=== PATIENT | female | born 1940 | race Caucasian/White ===

== ENCOUNTER 2021-09-18 12:32 | Outpatient (REF) | payer MEDICARE, SELFPAY ==
[2021-09-18 13:22] LABS: MANUAL DIFF FLAG NO
[2021-09-18 13:41] LABS: Basophils Percent Auto 0.5 % (0-2); Eosinophils Absolute Auto 0.1 X10*3/uL (0.0-0.4); Eosinophils Percent Auto 2.2 % (0-4); Hematocrit 41.6 % (37.0-47.0); Hemoglobin 13.4 g/dl (12.0-16.0); Imm Gran Abs Auto 0.02 X10*3/uL (0.00-0.03); Imm Gran Pct Auto 0.3 % (0.0-0.4); Lymphocytes Absolute Auto 1.4 X10*3/uL (1.2-4.9); Lymphocytes Percent Auto 22.6 % (20-40); Mean Corpuscular HGB Conc 32.2 g/dl (31.0-35.0); Mean Corpuscular Hemoglobin 31.5 pg (27.0-33.0); Mean Corpuscular Volume 97.9 fL (80.0-98.0); Mean Platelet Volume 12.3 fL (9.4-12.3); Monocytes Absolute Auto 0.7 X10*3/uL (0.1-1.2); Monocytes Percent Auto 10.3 % (2-11); Neutrophils Absolute Auto 4.1 x10*3/uL (2.0-8.3); Neutrophils Percent Auto 64.1 % (45-73); Platelet Count 207 X10*3/uL (160-400); Red Blood Count 4.25 X10*6/uL (4.20-5.50); Red Cell Distribution Width 11.9 % (11.0-16.0); White Blood Count 6.3 X10*3/uL (4.8-10.8)
[2021-09-18 13:52] LABS: Anion Gap 12 (12-20); Blood Urea Nitrogen 16 mg/dL (9-16); Carbon Dioxide 30 mmol/L (22-29); Chloride 103 mmol/L (96-108); Estimated Glomerular Filt Rate > 60; Sodium 141 mmol/L (135-145)
[2021-09-18 14:17] LABS: Free T4 (Free Thyroxine) 1.06 ng/dL (0.71-1.85)
== END 2021-09-18 12:33 | disposition home or self-care (01) ==
LOC: HO.10HDL 12:32
PROVIDERS: Visit Provider Family Medicine
DX: I10 Essential (primary) hypertension (principal); I49.3 Ventricular premature depolarization
CPT/HCPCS: 36415; 80051; 82565; 84439; 84520; 85025

== ENCOUNTER 2022-03-31 11:42 | Outpatient (REF) | payer MEDICARE, SELFPAY ==
[2022-03-31 13:41] LABS: Anion Gap 10 (12-20); Blood Urea Nitrogen 17 mg/dL (9-16); Carbon Dioxide 30 mmol/L (22-29); Chloride 105 mmol/L (96-108); Estimated Glomerular Filt Rate > 60; Potassium 4.5 mmol/L (3.3-5.1); Sodium 140 mmol/L (135-145)
== END 2022-03-31 11:43 | disposition home or self-care (01) ==
LOC: HO.10HDL 11:42
PROVIDERS: Visit Provider Family Medicine
DX: I10 Essential (primary) hypertension (principal)
CPT/HCPCS: 36415; 80051; 82565; 84520

== ENCOUNTER 2022-09-20 12:24 | Outpatient (REF) | payer MEDICARE, SELFPAY ==
[2022-09-20 14:06] LABS: Anion Gap 12 (12-20); Blood Urea Nitrogen 16 mg/dL (9-16); Carbon Dioxide 29 mmol/L (22-29); Chloride 105 mmol/L (96-108); Estimated Glomerular Filt Rate > 60; Potassium 4.3 mmol/L (3.3-5.1); Sodium 142 mmol/L (135-145)
[2022-09-21 07:33] LABS: Magnesium 2.1 mg/dL (1.6-2.6)
== END 2022-09-20 12:25 | disposition home or self-care (01) ==
LOC: HO.10HDL 12:24
PROVIDERS: Visit Provider Family Medicine
DX: I10 Essential (primary) hypertension (principal)
CPT/HCPCS: 36415; 80051; 82565; 83735; 84520

== ENCOUNTER 2022-10-18 13:32 | Outpatient (REF) | payer MEDICARE, SELFPAY ==
--- NOTE | ~2022-10-18 | XR_ITS ---
EXAMINATION: XR SHOULDER, RIGHT CLINICAL INFORMATION: Right shoulder pain. COMPARISON: None TECHNIQUE: AP external rotation, Grashey, scapular Y, and axillary views of the right shoulder. FINDINGS: The bones and soft tissues are normal. No fracture. Glenohumeral and acromioclavicular alignment is anatomic with mild reduced joint space. No abnormal soft tissue calcifications. XR/XR shoulder RT min 2V IMPRESSION: Mild degenerative changes right shoulder joint. No visible acute fracture or dislocation seen.
== END 2022-10-18 13:33 | disposition home or self-care (01) ==
LOC: HO.XRAY 13:32
PROVIDERS: PCP Family Medicine; Visit Provider Family Medicine
DX: M25.511 Pain in right shoulder (principal)
CPT/HCPCS: 73030

== ENCOUNTER 2023-03-07 11:19 | Outpatient (REF) | payer MEDICARE, SELFPAY ==
[2023-03-07 14:31] LABS: Anion Gap 13 (12-20); Blood Urea Nitrogen 16 mg/dL (9-16); Carbon Dioxide 29 mmol/L (22-29); Chloride 105 mmol/L (96-108); Estimated Glomerular Filt Rate > 60; Potassium 4.4 mmol/L (3.3-5.1); Sodium 143 mmol/L (135-145)
== END 2023-03-07 11:20 | disposition home or self-care (01) ==
LOC: HO.HMGCLDS 11:19
PROVIDERS: PCP Family Medicine; Visit Provider Family Medicine
DX: I10 Essential (primary) hypertension (principal)
CPT/HCPCS: 36415; 80051; 82565; 84520

== ENCOUNTER 2023-09-01 15:23 | Outpatient (REF) | payer MEDICARE, SELFPAY ==
--- NOTE | ~2023-09-01 | US_ITS ---
EXAMINATION: US EXTRACRANIAL CAROTID DUPLEX, BILATERAL CLINICAL INFORMATION: Dizziness and giddiness. COMPARISON: None available. TECHNIQUE: Real-time ultrasound and Doppler techniques (integrating B-mode 2-D vascular images, Doppler spectral analysis and color-flow Doppler imaging) were utilized to interrogate the extracranial carotid arteries, the vertebral arteries and proximal subclavian arteries bilaterally. The degree of stenosis is determined by criteria similar to NASCET. FINDINGS: Right Side: 1. There is minimal atherosclerotic plaque seen in the bifurcation/proximal ICA region. 2. The common carotid artery PSV proximally is 97 cm/s and distally 94 cm/s. 3. The proximal internal carotid artery velocities are 57 cm/s systolic and 15 cm/s diastolic. 4. The proximal external carotid artery PSV is 92 cm/s. 5. The vertebral artery shows antegrade flow. 6. The subclavian artery waveforms are normal. Left Side: 1. There is minimal atherosclerotic plaque seen in the bifurcation/proximal ICA region. 2. The common carotid artery PSV proximally is 121 cm/s and distally 98 cm/s. 3. The proximal internal carotid artery velocities are 90 cm/s systolic and 19 cm/s diastolic. 4. The proximal external carotid artery PSV is 113 cm/s. 5. The vertebral artery shows antegrade flow. 6. The subclavian artery waveforms are normal. US/US carotid duplex BI IMPRESSION: RIGHT: Minimal, non-hemodynamically significant stenosis of the proximal right internal carotid artery corresponding to a 0-49% stenosis by velocity criteria. LEFT: Minimal, non-hemodynamically significant stenosis of the proximal left internal carotid artery corresponding to a 0-49% stenosis by velocity criteria.
== END 2023-09-01 15:24 | disposition home or self-care (01) ==
LOC: HO.HMGCX 15:23
PROVIDERS: PCP Family Medicine; Visit Provider Family Medicine
DX: R42 Dizziness and giddiness (principal)
CPT/HCPCS: 93880

== ENCOUNTER → 2024-04-10 10:29 | Outpatient (REF) | payer MEDICARE, SELFPAY ==
--- NOTE | 2024-04-10 10:37 | CA_ITS ---
Transthoracic Echocardiogram Patient (Last, First, Middle): Mis Ahmadi, Gender: Female Date of : 1940 Age: 83 Procedure Date: 04/10/2024 Procedure Type: Transthoracic Echocardiogram Location: OP Height: 167.64 cm Weight: 56.7 kg BSA: 1.64 m2 Heart Rate: 60 bpm BP: 117 / 62 mmHg Box Chipper: ZULEMA Referring MD: Anshu Najera MD Kiln Pusher: Huang Steve MD Symptoms: 134.0 NR MV INSUFF Study Quality: Fair ECG Rhythm: Sinus Conclusions: - 1. Normal LV systolic function with LVEF of 60-65% with elevated filling pressures 2. Mild mitral regurgitation 3. Normal RV systolic pressure 4. No gross pericardial effusion Findings Left Ventricle Normal left ventricular size, thickness, and systolic function. The visually estimated ejection fraction is between 60-65%. Spectral Doppler is indicative of an impaired relaxation filling pattern. Elevated filling pressures. Right Ventricle Normal right ventricular cavity size and systolic function. Atria The left atrium is likely dilated. There is no evidence of interatrial shunt. The right atrium is normal in size. Aortic Valve The aortic valve structure and function is likely normal. There is mild calcification of the aortic valve. There is no aortic valve stenosis. There is no aortic valve regurgitation. Mitral Valve There is mild anterior and posterior mitral leaflet thickening. There is mild anterior mitral annular calcification. There is mild mitral valve regurgitation. There is no mitral valve stenosis. Pulmonic Valve The pulmonic valve is likely normal. There is trace pulmonic valve regurgitation. Tricuspid Valve Normal tricuspid valve structure. There is mild tricuspid valve regurgitation. The right ventricular systolic pressure is normal. The right ventricular systolic pressure is 26 mmHg. Normal right atrial pressure. There is no evidence of pulmonary hypertension. Great Vessels All visible segments of the aorta are normal in size. The pulmonary artery was not well visualized. There is no dilatation of the ascending aorta measuring 3.20 cm. Venous The inferior vena cava is normal in size and collapses greater than 50% with inspiration. Pericardium/Pleural There is no evidence of pericardial effusion. Prior Study Comparison No significant change compared to prior study dated: 10/12/2018. Measurements 2D Linear Measurements RVIDd: 2.95 IVSd: 0.70 0.6-0.9/0.6-1.0 cm LVIDd: 4.00 3.9-5.3/4.2-5.9 cm LVIDs: 2.53 2.0-3.6 cm LVPWd: 0.80 0.7-1.1 cm LA Diam: 3.40 2.7-3.8/3.0-4.0 cm LVOT Diam: 1.90 3.0+(-)1.3 cm 2D Volumes LV EDV: 48.60 56-104/67-155 ml LV ESV: 18.39 19-49/22-58 ml LA ESV A/L: 26.20 22-52/18-58 ML/M2 RA ESV A/L: 22.00 19-21 ML/M2 2D Systolic Function EF 4C: 60.00 >55% EF 2C: 62.40 >55% EF BiP: 61.00 >55% Mitral Valve MV Pk E: 0.99 MV PK A: 1.05 MV Decel Time: 251.00 E/A: 1.00 E'Lateral: 6.96 E'Medial: 5.40 E/E' Med: 18.30 E/E' Lat: 14.30 PHT: 74.00 MVA PHT: 2.97 Aortic Valve AoV Pk Robert: 1.64 AoV Mn Robert: 1.07 AoV VTI: 42.50 AoV Pk Grad: 11.00 Aov Mn Grad: 5.00 [facility] Cont.VTI: 1.96 LVOT LVOT Pk Robert: 1.06 LVOT Mn Robert: 0.66 LVOT VTI: 29.30 LVOT Pk Grad: 4.00 LVOT Mn Grad: 2.00 LVOT Diam: 1.90 Diastolic Function MV Pk E: 0.99 MV Pk A: 1.05 E/A: 1.00 E'Medial: 5.40 E/E' Med: 18.30 E' Laterial: 6.96 E/E' Lat: 14.30 IVC Diam Insp: 0.90 IVC Diam Exp: 2.05 Right Ventricle TAPSE (mm): 27.70 TVS' Robert: 11.80 Tricuspid Valve TR Pk Robert: 2.38 TR Pk Grad: 23.00 RA Press: 3.00 RVSP: 26.00 IVC Diam Exp: 2.05 IVC Diam Insp: 0.90 Great Vessels Aorta Sinus of Valsalva: 2.70 2.0-3.[address] Ridge: 2.30 1.7-3.4 cm Ao Asc: 3.20 2.1-3.4 cm Updated in Other Vendor System with Status of Final Huang Steve MD electronically signed on 04/10/2024 5:24:52 PM with status of Final
[2024-04-10 11:47] LABS: Anion Gap 11 (12-20); Blood Urea Nitrogen 19 mg/dL (9-16); Carbon Dioxide 30 mmol/L (22-29); Chloride 105 mmol/L (96-108); Estimated Glomerular Filt Rate > 60; Potassium 4.1 mmol/L (3.3-5.1); Sodium 142 mmol/L (135-145)
== END ==
LOC: HO.CARD 10:29
PROVIDERS: Absent Provider Family Medicine; PCP Family Medicine; Visit Provider Family Medicine
DX: I10 Essential (primary) hypertension (principal); I34.0 Nonrheumatic mitral (valve) insufficiency
CPT/HCPCS: 36415; 80051; 82565; 84520; 93306

== ENCOUNTER → 2024-04-10 10:37 | Outpatient (BNV) | payer MEDICARE, SELFPAY | PROVIDERS: Absent Provider Family Medicine; PCP Family Medicine; Visit Provider Internal Medicine Cardiovascular Disease | DX: I34.0 Nonrheumatic mitral (valve) insufficiency (principal); I36.1 Nonrheumatic tricuspid (valve) insufficiency; I35.8 Other nonrheumatic aortic valve disorders; I34.81 Nonrheumatic mitral (valve) annulus calcification | CPT/HCPCS: 93306 ==

== ENCOUNTER 2024-10-23 12:30 | Outpatient (REF) | payer MEDICARE, SELFPAY ==
[2024-10-23 16:32] LABS: Anion Gap 9 (12-20); Blood Urea Nitrogen 19 mg/dL (9-16); Carbon Dioxide 31 mmol/L (22-29); Chloride 105 mmol/L (96-108); Estimated Glomerular Filt Rate > 60; Sodium 141 mmol/L (135-145)
== END 2024-10-23 12:31 | disposition home or self-care (01) ==
LOC: HO.HMGCLDS 12:30
PROVIDERS: PCP Family Medicine; Visit Provider Family Medicine
DX: I10 Essential (primary) hypertension (principal)
CPT/HCPCS: 36415; 80051; 82565; 84520

== ENCOUNTER 2025-04-06 10:13 | Outpatient (AMB) | payer MEDICARE, SELFPAY ==
--- OUTSIDE RECORDS SUMMARY | 2025-04-06 10:14 | XMS_ITS | Clinical Summary ---
Author Organization [facility] Address [address] [place] [address] Care Team Providers Care Bench Chemist Name Role Phone Unavailable Primary Care Provider Unavailabl e Social History Tobacco Use Types Packs/Day Years Used Date Smoking Tobacco: Never Assessed Comments Unknown Sex and Gender Information Value Date Recorded Sex Assigned at Not on file Legal Sex Female 3:34 AM EDT Gender Identity Not on file Sexual Orientation Not on file Plan of Treatment Health Maintenance Due Date Last Done Comments DTaP/Tdap/Td (1 - Tdap) 1958 Pneumococcal 50+ years (1 of 1 - PCV) 1990 Zoster (Shingrix) (1 of 2) 1990 Bone Density 2005 RSV (1 - 1-dose 75+ series) 2015 COVID-19 Vaccine ( - 2023-2 5 season) 2024 Influenza (#1) 2024 HPV Vaccine Aged Out No longer eligi ble based on patient's age to complete this topic Hep A Aged Out No longer eligi ble based on patient's age to complete this topic Hep B Aged Out No longer eligi ble based on patient's age to complete this topic Hib Aged Out No longer eligi ble based on patient's age to complete this topic Mammogram/Breast Imaging Discontinued Meningococcal ACWY Aged Out No longer eligible based on patient's age to complete this topic Pap Smear Discontinued Zoster (Zostavax) Discontinued
[2025-04-06 10:23] VITALS: BP 112/60; PULSE 59; RESP 16; TEMP 36.5; O2SAT 96; BMI 20.3
--- NOTE | 2025-04-06 10:23 | MHC.OFFWIV ---
Intake Vital Signs 04/06/25 10:23 Height 5 ft 6 in Weight 126 lb BMI 20.3 BP 112/60 Blood Pressure Location Lt brachial Position Sitting Respiration 16 Pulse 59 Pulse Source Pulse Oximeter Temp 97.7 F Temp Source Oral Pulse Oximetry (%) 96 Oxygen Delivery Method Room Air Intake Visit Reasons: EP ? infection on LT shoulder Intake Note: Pt is here today c/o ? infection pimple like on Lt clavicle Allergies atorvastatin [Lipitor] Allergy (Unknown, Verified 08/17/23 14:52) Sulfa (Sulfonamide Antibiotics) Allergy (Unknown, Verified 08/17/23 14:52) Medication List - Last Reconciled 04/06/25 by Kaylee Jacome, YI- latanoprost 0.005% drps ophthalmic (eye) meloxicam 15 mg PO DAILY HPI HPI Comments History of Present Illness Details History of Present Illness - The patient is an 84-year-old female presenting with concern regarding a pimple-like area on her left shoulder with a burning sensation. - Onset was approximately one week ago post return from [place]. - The lesion appears as a sensitive and enlarging pimple-like area, causing discomfort with seatbelt use. - Previous self-treatment involved hot compresses and ointment with no resolution. - The patient has a history of previously diagnosed and treated melanomas. Review of Systems - Integumentary: Reports pimple-like lesion on left shoulder, burning sensation, and increased sensitivity. - General: Denies systemic symptoms such as fever or malaise. Discussion Notes During the visit, I explained to the patient that while the lesion resembles a pimple, the lack of fluctuation suggests a need for further evaluation by a building maintenance superintendent. I discussed the potential for skin growth given her history of melanomas. She has appt w/ [facility] on Tuesday. I expressed that her upcoming dermatology appointment is appropriate and recommended maintaining current precautions to avoid irritation. Potential aid in symptom relief was discussed, such as the seatbelt adjustment to prevent pressure. I also advised that the lesion does not currently appear infected or in need of drainage. Assessment and Plan 1. Atypical skin lesion anterior chest: - Dermatology referral for evaluation and management. - Adjust seatbelt use to limit irritation. Offered topical lidocaine, declined. 2. History of past melanomas -Recommend regular dermatology follow-ups. Patient Instructions - Continue wearing the seatbelt under the arm to avoid pressure on the shoulder lesion. - Keep the dermatology appointment as planned for further evaluation. Consent Patient was informed and verbally consented to the use of an ambient scribe for clinic note documentation during this visit. Physical Exam: Left anterior chest, no fluctuance or warmth. Area is quite painful to touch. appt Tuesday with [facility] Physical Exam Vital Signs: Last Vital Signs Temp 97.7 F 04/06/25 10:23 Pulse 59 04/06/25 10:23 Resp 16 04/06/25 10:23 BP 112/60 04/06/25 10:23 Pulse Ox 96 04/06/25 10:23 Oxygen Delivery Method Room Air 04/06/25 10:23 BMI result Body Mass Index 20.3 Assessment & Plan Assessment & Plan (1) Atypical squamoproliferative skin lesion: Code(s): D49.2 - Neoplasm of unspecified behavior of bone, soft tissue, and skin Plan . Coding Level of Care Code Est Pt Level 3 (58244) Diagnoses Atypical squamoproliferative skin lesion D49.2
== END 2025-04-06 11:04 | disposition home or self-care (01) ==
PROVIDERS: PCP Family Medicine; Visit Provider Nurse Practitioner Family
DX: D49.2 Neoplasm of unspecified behavior of bone, soft tissue, and skin (principal)

== ENCOUNTER → 2025-04-06 10:13 | Outpatient (BNVA) | payer MEDICARE, SELFPAY | PROVIDERS: PCP Family Medicine; Visit Provider Nurse Practitioner Family | DX: D49.2 Neoplasm of unspecified behavior of bone, soft tissue, and skin (principal) | CPT/HCPCS: 99212 ==

== ENCOUNTER 2025-10-09 09:45 | Outpatient (AMB) | payer MEDICARE, SELFPAY ==
--- NOTE | 2025-10-09 09:47 | MHC.PC.OV ---
Vital Signs 10/09/25 09:59 Height 5 ft 4.57 in Weight 58.06 kg BMI 21.6 BP 168/64 H Blood Pressure Location Lt brachial Position Sitting Respiration 18 Pulse 64 Pulse Source Pulse Oximeter Temp 98.7 F Temp Source Temporal Artery Scan Pulse Oximetry (%) 97 Oxygen Delivery Method Room Air Intake Visit Reasons: 6 MO F/UP & PHYSICAL - RANGEL PT Green Energy Marketing Analyst Required: No Accompanied by: Self / Same As Patient Allergies atorvastatin (Lipitor) Allergy (Unknown, Verified 10/09/25 09:52) liver enzymes tripled Tobacco use date assessed: 10/09/25 Fall risk assessment: 2 + Falls in past year Last assessed Fall Risk: 10/09/25 Dental Screening Dental Screen Date: 10/09/25 Did you have a dental visit in the last 12 months?: Yes Did you have a dental problem in the last 6 months where you did not have access to dental care?: No Was dental information given to patient?: Patient has dentist HPI HPI Comments History of Present Illness Details exercises with yoga, balancing/healthy strengthening exercise, bikes, swimming, and walking retired nurse [employer], 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 anxious- older sister and youner sister (schizophrenic- in and out stops taking meds. now asst living cannot take care of herself). trying to sell house- now POA anxiety at 4am up at 6. gets 6-7 hours nightly and feels rested was sold 1 m ago but backed out checks bp at home and normal. metoprolol at home. [facility] ?merk cell- mohs upper left ravi. has grown, supposedly ok. around area [facility] Medical History (Updated 10/09/25 @ 10:25 by ANNA Campa) Squamous cell carcinoma in situ (SCCIS) of skin Melanoma HTN (hypertension) Social History (System 08/17/23 @ 14:52 by Mónica Banerjee) Housing: House Patient Tobacco Use Status: Former Tobacco user Years Smoked: social smoker for about 20 years e-Cigarette/Vaping Use: Never Used service: No Current occupational status: retired Questionnaire AUDIT C Alcohol Use Questionnaire (AUDIT-C) 1. How often do you have a drink containing alcohol?: 4 or more times a week 2. How many drinks containing alcohol do you have on a typical day when you are drinking?: 1 or 2 3. How often do you have six or more drinks on one occasion?: Never Total Score: 4 Physical exam (Primary Care) Vital Signs: Last Vital Signs Temp 98.7 F 10/09/25 09:59 Pulse 64 10/09/25 09:59 Resp 18 10/09/25 09:59 BP 168/64 H 10/09/25 09:59 Pulse Ox 97 10/09/25 09:59 Oxygen Delivery Method Room Air 10/09/25 09:59 BMI result Body Mass Index 21.6 Tobacco/Smoking Status: Tobacco use Status Tobacco use date assessed 10/09/25 10/09/25 09:48 Patient Tobacco Use Status Former Tobacco user 10/09/25 09:56 e-Cigarette/Vaping Use Never Used 10/09/25 10:01 Coding Assessment & Plan Assessment & Plan Orders: Orders Complete Blood Count Auto Diff Today Z00.00 - Encounter for general adult medical examination without abnormal findings Hemoglobin A1c Today Z00.00 - Encounter for general adult medical examination without abnormal findings Vitamin D 25-OH Total Today Z00.00 - Encounter for general adult medical examination without abnormal findings Basic Metabolic Panel Today Z00.00 - Encounter for general adult medical examination without abnormal findings Lipid Panel Today Z00.00 - Encounter for general adult medical examination without abnormal findings Liver Panel Today Z00.00 - Encounter for general adult medical examination without abnormal findings TSH reflex Free T4 Today Z00.00 - Encounter for general adult medical examination without abnormal findings
[2025-10-09 09:59] VITALS: BP 168/64; PULSE 64; RESP 18; TEMP 37.1; O2SAT 97; BMI 21.6
--- OUTSIDE RECORDS SUMMARY | 2025-10-09 10:52 | XMS_ITS | Encounter Summary ---
Author Organization [facility] Address [address] [place] [phone] Phone Care Team Providers Care Network Operations Technician Name Role Phone Anshu Najera MD Primary Care Provider [phone] Reason for Referral * - Closed Specialty Diagnoses / Procedures Referred By Contac t Referred To Contact Diagnoses Palpitations Benign essential hypertension Procedures MCT (Mobile Cardiac Telemetry) Jagdeep Romero DO Phone: tel: fax: mailto: Referral ID Status Reason Start Date Expiration Date Visits Re quested Visits Authorized [id number] Closed 11/04/2017 11/04/2018 1 1 Encounter Details Date Type Department Care Team (Latest Contact Info) Description 11/04/2017 Ancillary [facility] [address], [address] [place] [address] Jagdeep Romero DO [address] [place] [phone] [email or web address] Palpitations; Benign essential hypertension Social History Tobacco Use Types Packs/Day Years Used Date Smoking Tobacco: Former Smokeless Tobacco: Never Alcohol Use Standard Drinks/Week Comments Yes 0 (1 standard drink = 0.6 oz pur e alcohol) 1 glass of wine occasionally Comments Unknown Sex and Gender Information Value Date Recorded Sex Assigned at Not on file Legal Sex Female 8:49 AM EST Gender Identity Not on file Sexual Orientation Not on file documented as of this encounter Plan of Treatment Not on file documented as of this encounter Results * MCT (Mobile Cardiac Telemetry) (11/04/2017 8:21 AM EST) Anatomical Region Laterality Modality Heart Other Narrative 11/04/2017 12:47 PM EST Abnormal 30 day (MCOT) Event monitor. Basic rhythm is sinus at an average rate in the 70s. Frequent premature supraventricular complexes and fleeting paroxysms of PAT at rates up to 135 bpm, but less than 10 beats in duration. Ten palpitations during the month occur during sinus rhythm, PACs, and PAT, such there is a poor correlation between symptoms and rhythm. No pauses. No sustained arrythmias. Findings as described common for age group. Jagdeep Romero DO [facility] ORDERABLE S Final Result documented in this encounter Visit Diagnoses Diagnosis Palpitations Benign essential hypertension Essential hypertension, benign Palpitations Benign essential hypertension Essential hypertension, benign documented in this encounter Care Teams Network Operations Technician Relationship Specialty Start Date End Date Anshu Najera MD [address] [place] [address] [place] [id number] PCP - General Internal Medicine 10/05/17 documented as of this encounter Additional Source Comments The information contained in this document represents components of the legal health record. It is not the complete legal health record.[facility]
--- OUTSIDE RECORDS SUMMARY | 2025-10-09 10:52 | XMS_ITS | Clinical Summary ---
Author Organization [facility] Address [address] [place] [address] Care Team Providers Care Devulcanizer Head Name Role Phone Unavailable Primary Care Provider [...] 75+ series) 2015 COVID-19 Vaccine ( - 2024-2 6 season) 2025 Influenza (#1) 2025 HPV Vaccine (No Doses Required) Completed Hep A Aged Out No longer eligi [...]
--- OUTSIDE RECORDS SUMMARY | 2025-10-09 10:52 | XMS_ITS | Clinical Summary ---
Author Organization [facility] Address [address] [facility] [address] [place] [phone] Phone Care Team Providers Care Attendance Officer Name Role Phone Anshu Najera MD Primary Care Provider Allergies Active Allergy Reactions Criticality Noted Date Comments Atorvastatin 10/24/2017 Liver enzymes increased, Sensitivity Medications aspirin 81 MG EC tablet Take 81 mg by mouth daily. Active metoprolol succinate (TOPROL-XL) 50 MG 24 hr tablet Take 50 mg by mouth daily. Active Active Problems Problem Noted Date Diagnosed Date Non-rheumatic mitral regurgitation 03/21/2018 Assessment & Plan (02/14/2019 4:54 PM EDT): -Her updated echocardiogram in October 2018 showed that mitral regurgitation had improved to mild, from moderate to severe. -She is aware to report any issues with exercise intolerance, chest pain, dizziness. -She can follow-up in the office in 1 year, sooner as needed. Assessment & Plan (03/21/2018 10:22 AM EDT): - Moderate to severe noted on echocardiogram 10/26/17 - No murmur noted upon exam today, faint murmur was heard during previous clinician visit in October 2017 - She has no symptoms of chest pain, dizziness, exercise intolerance - We reviewed the progressive nature of this issue and to report symptoms - She will have a one year echocardiogram around October 2018, and follow-up in this office after testing. She can be seen sooner as needed. Palpitations 10/24/2017 Assessment & Plan (02/14/2019 4:54 PM EDT): -Her palpitations have significantly decreased in frequency. She has realized that triggers include caffeine, candy, and some stress. She is tolerating metoprolol. Her updated echocardiogram showed no wall motion abnormalities. -She will let us know if there are any worsening symptoms. She will follow-up in the office in 1 year, sooner. Assessment & Plan (03/21/2018 10:21 AM EDT): - Reports that these have significantly decreased in frequency, however do continue - She is tolerating the metoprolol and feels that it has helped - We will order TSH since she does not have a recent one on file - 30 day event monitor started in October 2017 showing sinus rhythm at baseline, some paroxysmal PAT less than 10 beats and duration. No sustained arrhythmias. - Echo showed no wall motion abnormalities - She has been able to do her normal activities and continue to exercise. She has had some stress lately with illnesses in her family. - She will return to this office in about 8 months, sooner as needed. Red flags were reviewed and she indicates understanding. Assessment & Plan (10/24/2017 10:57 AM EST): This patient as above has palpitations in episodes that are either concerning for an SVT which perhaps this is a generally fibrillation I'm going to order her a loop recorder with A. fib detection and echocardiogram Benign essential hypertension 10/24/2017 Assessment & Plan (02/14/2019 4:55 PM EDT): -Blood pressure initially elevated upon arrival to the office, however normal upon recheck. She is working on stressors and also working on yoga, exercise, and trying to stay social and active. -She will continue having her blood pressures followed by her PCP. Continue on metoprolol. -Heart healthy diet also discussed. Assessment & Plan (03/21/2018 10:23 AM EDT): - Blood pressure generally within range today. -She indicates that she has had some family stressors lately, but does do her yoga practice and try to stay active and social. -She is aware to watch her blood pressures at home. - She also is followed by her PCP. - She will follow-up around October 2018, sooner as needed. Assessment & Plan (10/24/2017 10:58 AM EST): Very well controlled at the present time on metoprolol extended release 50 mg daily Family History Medical History Relation Comments Heart failure Mother Pacemaker Mother Relation Status Comments Mother Social History Tobacco Use Types Packs/Day Years Used Date Smoking Tobacco: Former Smokeless Tobacco: Never Alcohol Use Standard Drinks/Week Comments Yes 0 (1 standard drink = 0.6 oz pur e alcohol) 1 glass of wine occasionally Education Answer Date Recorded Are you interested in more education? Not on hanna e 03/04/2023 Are you concerned about learning? Not on file 03/04/2023 No 03/04/2023 No 03/04/2023 Digital Access Answer Date Recorded No 04/02/2023 No 04/02/2023 No 04/02/2023 Reliable internet access at home? Not on file 04/02/2023 Device with a working camera? Not on file Comments Unknown Sex and Gender Information Value Date Recorded Sex Assigned at Not on file Legal Sex Female 8:49 AM EST Gender Identity Not on file Sexual Orientation Not on file Last Filed Vital Signs Vital Sign Reading Time Taken Comments Blood Pressure 130/80 02/14/2019 9:16 AM EDT Pulse 73 02/14/2019 8:53 AM EDT Temperature - - Respiratory Rate - - Oxygen Saturation 98% 02/14/2019 8:53 AM EDT Inhaled Oxygen Concentration - - Weight 54.4 kg (120 lb) 02/14/2019 8:53 AM EDT Height 167.6 cm (5' 6 ) 02/14/2019 8:53 AM EDT Body Mass Index 19.37 02/14/2019 8:53 AM EDT Plan of Treatment Health Maintenance Due Date Last Done Comments Adult Td,Tdap Booster 1940 BLOOD PRESSURE 1940 DEPRESSION SCREENING 1952 ZOSTER VACCINES (1 of 2) 1990 OSTEOPOROSIS SCREENING INITIAL (ONE-TIME) 2005 RSV VACCINE (1 - 1-dose 75+ series) 2015 INFLUENZA VACCINE (#1) 2025 , 08/14/2019, 08/20/2017, Additional history exists COVID-19 VACCINE (2024- season) 2025 01/02/2021, 12/12/2020 PNEUMOCOCCAL VACCINES (50+ years) Completed 08/20/2017, 10/28/2015 HEPATITIS A VACCINES Aged Out No long er eligible based on patient's age to complete this topic HIB VACCINES Aged Out No longer eligi ble based on patient's age to complete this topic MENINGOCOCCAL VACCINES (ACWY) Aged Out No longer eligible based on patient's age to complete this topic MENINGOCOCCAL VACCINES (B) Aged Out N o longer eligible based on patient's age to complete this topic Medical Devices Not on file Insurance MEDICARE PART A & B [facility] MEDEX SUPPLEMENT MEDICARE PART A & B [employer] MEDEX SUPPLEMENT MEDICARE PART A & B [employer] MEDEX SUPPLEMENT MEDICARE PART A & B [employer] SUPPLEMENT MEDICARE PART A & B [employer] SUPPLEMENT MEDICARE PART A & B [employer] MEDEX SUPPLEMENT MEDICARE PART A & B [employer] MEDEX SUPPLEMENT MEDICARE PART A & B [employer] MEDEX SUPPLEMENT MEDICARE PART A & B [employer] MEDEX SUPPLEMENT Care Teams Attendance Officer Relationship Specialty Start Date End Date Anshu Najera MD [address] [place] [address] [place] [id number] PCP - General Internal Medicine 10/05/17 Additional Source Comments The information contained in this document represents components of the legal health record. It is not the complete legal health record.[facility]
--- NOTE | 2025-10-12 22:13 | A.OFFVIS_ITS ---
Intake Vital Signs 10/09/25 09:59 10/12/25 22:15 Height 5 ft 4.57 in Weight 58.06 kg BMI 21.6 BP 168/64 H 118/60 Blood Pressure Location Lt brachial Position Sitting Respiration 18 Pulse 64 Pulse Source Pulse Oximeter Temp 98.7 F Temp Source Temporal Artery Scan Pulse Oximetry (%) 97 Oxygen Delivery Method Room Air Intake Visit Reasons: 6 MO F/UP & PHYSICAL - NAJERA PT Allergies atorvastatin (Lipitor) Allergy (Unknown, Verified 10/09/25 09:52) liver enzymes tripled HPI HPI Comments History of Present Illness Details 85 year old female with history of htn, melanoma, SCC skin, tachycardia presenting to the office to [facility] care, for annual wellness visit and management of chronic conditions. Last seen by Dr. Najera several months ago HTN/Tachycardia- on toprol. HR 68 SCC/Melanoma- NE Derm. New lesion upper chest Concerns: Skin lesion Reviewed past medical, surgical, family, social history ROS: General: No fevers, malaise, unintentional weight loss HEENT: No blurred vision, diplopia. No sore throat, nasal congestion, rhinorrhea, sinus pain, ear pain. No hearing loss Neck - no adenopathy Cardiovascular: No chest pain, palpitations, or leg edema Respiratory: No shortness of breath, wheezing, cough Breast: No pain, palpable lumps, nipple inversion GI: No dysphagia, odynophagia, globus sensation. No abdominal pain, nausea, vomiting, diarrhea, constipation, melena, hematochezia : No dysuria, hematuria, increased urinary frequency, decreased urinary output. 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 No AH/VH. No SI/HI Skin: No rashes or lesions EXAM: Constitutional - Awake and Alert, No apparent distress Eyes - PERRLA, EOMI. Anicteric Ears - external ears normal, canals clear, TMs intact and pearly pinto with good cone of light Nose- septum midline, nares clear, no sinus tenderness Mouth/throat- mucosa moist, tongue and uvula midline, no erythema/edema or tonsillar adenopathy. Neck-trachea midline, thyroid symmetric without palpable nodules, no adenopathy Cardiovascular - S1S2, RRR, No edema Respiratory - Normal lung expansion, Normal respiratory effort, No respiratory distress, CTA bilaterally Gastrointestinal - NT / ND; +BS; No rebound or guarding - No CVA tenderness Extremities - no calf tenderness bilaterally, no swelling Musculoskeletal - Normal inspection, normal ROM Skin - Warm/Dry, scaling 1cm lesion with erythematous ring Neurological - Alert & oriented x3, CN II-XII in tact, 5/5 strength BUE and BLE, 2+ patellar reflexes, sensation intact Psychological - Appropriate affect [facility] Medical History Squamous cell carcinoma in situ (SCCIS) of skin Melanoma HTN (hypertension) Surgical History History of total left knee replacement History of laminectomy History of appendectomy History of Mohs surgery for squamous cell carcinoma of skin Family History Sister Alzheimer dementia Sister Schizophrenia Father Throat cancer AML (acute myeloid leukemia) Lung cancer Social History Housing: House Patient Tobacco Use Status: Former Tobacco user Years Smoked: social smoker for about 20 years e-Cigarette/Vaping Use: Never Used service: No Current occupational status: retired Questionnaire Medicare Wellness Checkup What is your age?: 80 or older What gender do you identify with?: female During the past 4 weeks, how much have you been bothered by emotional problems such as feeling anxious, depressed, irritable, sad or downhearted, and blue?: slightly During the past 4 weeks, has your physical & emotional health limited your social activities with family, friends, neighbors, or groups?: not at all During the past 4 weeks, how much bodily pain have you generally had?: very mild pain During the past 4 weeks, was someone available to help you if you needed & wanted help?: yes, quite a bit During the past 4 weeks, what was the hardest physical activity you could do for at least 2 minutes?: heavy Can you get to places out of walking distance without help? (For eg., can you travel alone on buses, taxis or drive your car?): Yes Can you go shopping for groceries or clothes without someone's help?: Yes Can you prepare your own meals?: Yes Can you do your housework without help?: Yes Because of any health problems, do you need the help of another person with your personal care needs such as eating, bathing, dressing or getting around the house?: No Can you handle your own money without help?: Yes During the past 4 weeks, how would you rate your health in general?: very good During the past 4 weeks how have things been going for you?: pretty well Are you having difficulties driving your car?: no Do you always fasten your seat belt when you are in a car?: yes, usually During past 4 weeks, have you been bothered by the following: never: Falling or dizzy when standing up, Sexual problems?, Trouble eating well?, Teeth or denture problems?, Problems using the telephone? and Tiredness or fatigue? Have you fallen 2 or more times in the past year?: Yes Are you afraid of falling?: No Are you a smoker?: no During the past 4 weeks, how many drinks of wine, beer, or other alcoholic beverages did you have?: 2-5 drinks per week Do you exercise for about 20 minutes 3 or more times a week?: yes, all the time Have you been given information to help with the following?: yes: Hazards in your house that might hurt you? and no: Keeping track of your medications? How often do you have trouble taking medicines the way you have been told to take them?: I always take medicine as prescribed How confident are you that you can control & manage most of your health problems?: very confident What is your race?: White Mini Mental State Exam (MMSE) Orientation What is the (year) (season) (date) (day) (month)?: year, season, date, day and month Where are we (state) (county) (town or city) (hospital) (floor)?: state, county, town or city, hospital/clinic and floor Registration Name of 3 unrelated objects clearly and slowly, then ask patient to repeat all 3 of them. (1st repeat determines score. Make sure they can repeat all three): object 1, object 2 and object 3 Attention & Calculation (CHOOSE ONE) Ask pt to begin with 100 & count backward by 7. Stop after 5 repeats. If pt cannot ask them to spell the word WORLD backward.: 93, 86, 79, 72 and 65 Spell WORLD backwards (DLROW): 5 letters Recall Ask patient to repeat the 3 items from question #3.: object 1, object 2 and object 3 Language Show patient a wristwatch & ask what it is. Repeat for pencil.: watch and pencil Ask the patient to repeat the phrase 'No ifs, ands, or buts' after you.: correct Ask the patient to 'take a piece of paper with their right hand' 'fold paper in half' 'place paper on floor': take paper in right hand, fold paper in half and place paper on floor Print the sentence 'CLOSE YOUR EYES' on a piece. If patient actually closes eyes then score.: followed written direction Give patient a blank piece of paper & ask to write a sentence. Score if it contains a noun & verb.: sentence contains subject and verb Ask patient to copy figure of intersecting pentagons exactly. Score if all 10 angles & 2 intersects are included.: all 10 angles present & 2 are intersected Score Score: 35 Activity of Daily Living Bathing - sponge bath, tub bath or shower: receives no assistance (gets in/out by self, if usual bathing means Dressing - getting clothes from closets & drawers, including inner/outer garments & fasteners.: gets clothes & gets completely dressed without help Toileting - going to the 'toilet room' for urine/bowel elimination & cleaning self/arranging clothes: goes to toilet room, cleans self, arranges clothes without help Transfer: moves in & out of bed and chair without help (may use support object) Continence: controls urination/bowel movements completely by self Feeding: feeds self without help Total Score: 0 Information obtained from: patient Using telephone: independent Traveling: independent Shopping: independent Preparing meals: independent Housework: independent Taking medicine: independent Managing money: independent PHQ-9 Over the last 2 weeks, how often have you been bothered by any of the following problems? 1. Little interest or pleasure in doing things: not at all 2. Feeling down, depressed, or hopeless: not at all 3. Trouble falling or staying asleep, or sleeping too much: not at all 4. Feeling tired or having little energy: not at all 5. Poor appetite or overeating: not at all 6. Feeling bad about yourself - or that you are a failure or have let yourself or your family down: not at all 7. Trouble concentrating on things, such as reading the newspaper or watching television: not at all 8. Moving or speaking so slowly that other people could have noticed. Or the opposite - being so fidgety or restless that you have been moving around a lot more than usual: not at all 9. Thoughts that you would be better off or of hurting yourself in some way: not at all Total score: 0 Depression Screening Interpretation: Negative Depression Screening Done: Yes 79021 - PHQ-9 Billing: Yes Source: Developed by Drs. Lee Johns, Keren Weiss, Primo Reyez and colleagues, with an educational sukhjinder from [employer]. Physical Exam Vital Signs: Last Vital Signs Temp 98.7 F 10/09/25 09:59 Pulse 64 10/09/25 09:59 Resp 18 10/09/25 09:59 BP 168/64 H 10/09/25 09:59 Pulse Ox 97 10/09/25 09:59 Oxygen Delivery Method Room Air 10/09/25 09:59 BMI result Body Mass Index 21.6 Assessment & Plan Assessment & Plan (1) Encounter for annual wellness visit (AWV) in Medicare patient: Code(s): Z00.00 - Encounter for general adult medical examination without abnormal findings Plan: Reviewed medical, surgical, family, and social history Reconciled medication list Reviewed functional status, cognitive function, fall risk, mood, vision/hearing, and safety screening- no concerns Risk factors identified: none Advance care planning discussion completed/declined (2) HTN (hypertension): Code(s): I10 - Essential (primary) hypertension Plan: Controlled on recheck. Continue toprol (3) Atypical squamoproliferative skin lesion: Code(s): D49.2 - Neoplasm of unspecified behavior of bone, soft tissue, and skin Plan: Referred back to dermatology for evaluation and consideration of biopsy (4) Melanoma: Code(s): C43.9 - Malignant melanoma of skin, unspecified Plan: Continue with close surveillance at dermatology Plan Follow up in 6 months. Labs as ordered Orders: Orders Complete Blood Count Auto Diff 10/09/25 Z00.00 - Encounter for general adult medical examination without abnormal findings Hemoglobin A1c 10/09/25 Z00.00 - Encounter for general adult medical examination without abnormal findings Vitamin D 25-OH Total 10/09/25 Z00.00 - Encounter for general adult medical examination without abnormal findings Basic Metabolic Panel 10/09/25 Z00.00 - Encounter for general adult medical examination without abnormal findings Lipid Panel 10/09/25 Z00.00 - Encounter for general adult medical examination without abnormal findings Liver Panel 10/09/25 Z00.00 - Encounter for general adult medical examination without abnormal findings TSH reflex Free T4 10/09/25 Z00.00 - Encounter for general adult medical examination without abnormal findings Quality Reporting (2019) Adult ([facility] 138//) Body Mass Index: 21.6 Depression/Bipolar (159/160/161/177) PHQ-9: Total score: 0 Coding Level of Care Code Medicare First (G0438) Est Pt Level 4 (68930) Diagnoses Encounter for annual wellness visit (AWV) in Medicare patient Z00.00 HTN (hypertension) I10 Atypical squamoproliferative skin lesion D49.2 Melanoma C43.9 Additional Codes PHQ-9 - 90375 - PHQ-9 Billing: Yes ([id number]) Comment [id number] Advance Care Planning Advance Care Planning discussion: Exists, not on file Date of discussion: 10/09/25 Forms completed: None
[2025-10-12 22:15] VITALS: BP 118/60
[2025-10-12 22:25] VITALS: BMI 21.6
== END 2025-10-09 11:11 | disposition home or self-care (01) ==
PROVIDERS: PCP Physician Assistant; Visit Provider Physician Assistant
DX: Z00.00 Encounter for general adult medical examination without abnormal findings (principal); I10 Essential (primary) hypertension; D49.2 Neoplasm of unspecified behavior of bone, soft tissue, and skin; C43.9 Malignant melanoma of skin, unspecified

== ENCOUNTER 2025-10-09 11:13 | Outpatient (REF) | payer MEDICARE, SELFPAY ==
[2025-10-09 13:34] LABS: MANUAL DIFF FLAG NO
[2025-10-09 13:41] LABS: Hematocrit 44.1 % (37.0-47.0); Hemoglobin 14.4 g/dl (12.0-16.0); Imm Gran Abs Auto 0.01 X10*3/uL (0.00-0.03); Imm Gran Pct Auto 0.2 % (0.0-0.4); Lymphocytes Absolute Auto 1.2 X10*3/uL (1.2-4.9); Mean Corpuscular HGB Conc 32.7 g/dl (31.0-35.0); Mean Corpuscular Hemoglobin 31.9 pg (27.0-33.0); Mean Corpuscular Volume 97.8 fL (80.0-98.0); NRBC Abs Auto 0.000 X10*3/uL (0.0-0.012); NRBC Pct Auto 0.0 /100WBC (0.0-0.2); Platelet Count 218 X10*3/uL (160-400); Red Blood Count 4.51 X10*6/uL (4.20-5.50); White Blood Count 6.2 X10*3/uL (4.8-10.8)
[2025-10-09 13:58] LABS: Total Hemoglobin (HGBA1C) 2462.9650 umol/L
[2025-10-09 14:25] LABS: Alanine Aminotransferase 20 U/L (0-31); Albumin Level 4.6 g/dL (3.5-5.0); Alkaline Phosphatase 72 U/L (39-117); Anion Gap 11 (12-20); Aspartate Amino Transferase 30 U/L (5-31); Blood Urea Nitrogen 15 mg/dL (9-16); Calcium 9.7 mg/dL (8.4-10.2); Carbon Dioxide 30 mmol/L (22-29); Chloride 105 mmol/L (96-108); Cholesterol 225 mg/dL (<200); Estimated Glomerular Filt Rate > 60; HDL Cholesterol 60 mg/dL (>40); Potassium 4.4 mmol/L (3.3-5.1); Sodium 142 mmol/L (135-145); Total Protein 8.0 g/dL (6.5-8.0); Triglycerides 97 mg/dL (<150)
== END 2025-10-09 11:14 | disposition home or self-care (01) ==
LOC: HO.10HDL 11:13
PROVIDERS: Visit Provider Physician Assistant
DX: Z00.00 Encounter for general adult medical examination without abnormal findings (principal); Z13.0 Encounter for screening for diseases of the blood and blood-forming organs and certain disorders involving the immune mechanism; Z13.29 Encounter for screening for other suspected endocrine disorder; Z13.1 Encounter for screening for diabetes mellitus; Z13.21 Encounter for screening for nutritional disorder; Z13.6 Encounter for screening for cardiovascular disorders
CPT/HCPCS: 36415; 80048; 80061; 80076; 82306; 83036; 84443; 85025